=== PATIENT | female | born 1950 | race African-American/Black ===

== ENCOUNTER 2016-08-27 12:55 | Emergency (ER) | payer MEDICAID ==
[~2016-08-27] VITALS: Ht 167.6 cm; Wt 102.0 kg
[~2016-08-27 12:55] MED LIST: ALBU18HF2 IH; ASPI-1035 PO; ATOR20TA65 PO; BACL-141 PO; BP MED; CARV6.2548 PO; CYCL30DR EACHEYE; DEXT15DR5 EACHEYE; DIABETIC MED; DOCU-150 PO; FLUT16SP15 BOTHNSTRLS; GABA-290 PO; GLIM2TAB2 PO; LACRILUBE; LORA10TA7 PO; LOSA25TA12 PO; METF500T4 PO; METH4TAB17 PO; NITR0.4T3 SL; OMEP20CA10 PO; [UNRECOGNIZED DRUG - OTHER] PO; [UNRECOGNIZED DRUG - SUPPLY]
[2016-08-27] MEDS ORDERED: KETOROLAC 60MG/2ML VIAL IM ONE (16:45)
[2016-08-27 16:55] VITALS: BP 118/57
== END 2016-08-27 17:18 | disposition home or self-care (01) ==
LOC: ER 16:12
DX: S39.012A Strain of muscle, fascia and tendon of lower back, initial encounter (principal); S16.1XXA Strain of muscle, fascia and tendon at neck level, initial encounter; S80.02XA Contusion of left knee, initial encounter; S80.01XA Contusion of right knee, initial encounter; G89.29 Other chronic pain; J45.909 Unspecified asthma, uncomplicated; I10 Essential (primary) hypertension; Z79.82 Long term (current) use of aspirin; Z86.73 Personal history of transient ischemic attack (TIA), and cerebral infarction without residual deficits; Z79.899 Other long term (current) drug therapy; W19.XXXA Unspecified fall, initial encounter; Y93.89 Activity, other specified; Y99.8 Other external cause status; Y92.89 Other specified places as the place of occurrence of the external cause
CPT/HCPCS: 96372; 99283; J1885; Z7610

== ENCOUNTER 2016-12-03 15:05 | Inpatient (IN) | payer MEDICAID ==
[~2016-12-03] VITALS: Ht 167.6 cm; Wt 92.5 kg
[~2016-12-03 15:05] MED LIST changes: -ASPI-1035 PO; +ASPI-1159 PO
[2016-12-03] MEDS ORDERED: IPRATROPIUM BROMIDE (0.02%) 0.5MG/2.5ML NEB HHN STA (15:34)
[2016-12-03] MEDS ORDERED: METHYLPREDNISOLONE SOD SUCC 125 MG/2 ML VIAL IV STA (15:34)
[2016-12-03 16:08] LABS: BASOPHILS % 1.1 % (0.0-2.0); EOSINOPHILS % 10.5 % (0.0-5.0); HEMATOCRIT. 37.8 % (36.0-48.0); HEMOGLOBIN. 12.4 g/dL (12.0-16.0); LYMPHOCYTES % 36.9 % (20.0-50.0); MEAN CORPUSCULAR HEMOGLOBIN 30.2 pg (28.0-32.0); MEAN CORPUSCULAR VOLUME 91.8 fL (81.0-99.0); MEAN PLATELET VOLUME 9.3 fl (7.4-10.4); MONOCYTES % 7.1 % (2.0-8.0); NEUTROPHILS % 44.4 % (40.0-76.0); PLATELET 142 x1000/uL (130-400); RED BLOOD CELL COUNT 4.11 mill/uL (4.2-5.4); RED CELL DISTRIBUTION WIDTH 13.6 % (11.6-14.6)
[2016-12-03] MEDS: ALBUTEROL (0.083%) 2.5MG/3ML NEB HHN SCH ×2 (16:08→17:22)
[2016-12-03 16:12] LABS: PROTHROMBIN TIME 10.5 sec
[2016-12-03 16:22] LABS: CARBON DIOXIDE 31 mEq/L (21-32); CHLORIDE 107 mEq/L (98-107); TROPONIN I < 0.02 ng/mL (0.00-0.04)
[2016-12-03] MEDS ORDERED: ENOXAPARIN 40MG/0.4ML SYR SUBCUT SCH (19:00)
[2016-12-03] MEDS ORDERED: NA PHOS,M-B/NA PHOS,DI-BA ENEMA 118ML PR PRN (19:00)
[2016-12-03] MEDS ORDERED: MAGNESIUM/ALUMINUM HYDROXIDE/SIMETHICONE 30ML UDC PO PRN (19:00)
[2016-12-03] MEDS ORDERED: ACETAMINOPHEN 325MG TABLET PO PRN (19:00)
[2016-12-03] MEDS ORDERED: HYDROMORPHONE HCL/PF 2MG/ML CPJ IV PRN (19:00)
[2016-12-03] MEDS ORDERED: DOCUSATE SODIUM 100MG CAPSULE PO PRN (19:00)
[2016-12-03] MEDS ORDERED: DIPHENHYDRAMINE 50MG/ML VIAL IV PRN (19:00)
[2016-12-03] MEDS ORDERED: LORAZEPAM 2MG/ML CPJ IV PRN (19:00)
[2016-12-03] MEDS ORDERED: GUAIFENESIN 200MG/10ML SUGAR FREE UDC PO PRN (19:00)
[2016-12-03] MEDS ORDERED: ONDANSETRON HCL 4MG/2ML VIAL IV PRN (19:00)
[2016-12-03] MEDS ORDERED: CLONIDINE 0.1MG TABLET PO PRN (19:00)
[2016-12-03] MEDS ORDERED: IPRATROPIUM/ALBUTEROL 0.5-3(2.5)MG/3ML NEB INH PRN (19:00)
[2016-12-03] MEDS ORDERED: HYDROCODONE/ACETAMINOPHEN 5/325MG TABLET PO PRN (19:00)
[2016-12-03 23:00] VITALS: BP 141/90
[2016-12-04] MEDS ORDERED: METHYLPREDNISOLONE 4MG TABLET PO SCH
[2016-12-04] MEDS ORDERED: NITROGLYCERIN 0.4MG TABLET SL SL SCH
[2016-12-04] MEDS ORDERED: ALBUTEROL 6.7GM HFA INHALER INH SCH
[2016-12-04] MEDS ORDERED: MEDICATION NOT ON FORMULARY EA (Dextran 70/Hypromellose (Artificial Tears Eye Drops) 1 D EACHEYE PRN
[2016-12-04] MEDS ORDERED: LORATADINE 10MG TABLET PO PRN
[2016-12-04 00:12] LABS: CARBON DIOXIDE 30 mEq/L (21-32); CHLORIDE 104 mEq/L (98-107); TROPONIN I < 0.02 ng/mL (0.00-0.04)
[2016-12-04] MEDS: METHYLPREDNISOLONE SOD SUCC 125 MG/2 ML VIAL IV SCH ×4 (00:27→21:07)
[2016-12-04] MEDS: LEVOFLOXACIN 500MG PREMIX 100 ML IV SCH (00:28)
[2016-12-04] MEDS ORDERED: POLYVINYL ALCOHOL OPHTH DROPS 15ML EACHEYE PRN (01:00)
[2016-12-04] MEDS ORDERED: DEXTROSE 50% WATER 50ML SYRINGE IV PRN (02:00)
[2016-12-04 04:00] VITALS: BP 124/76
[2016-12-04] MEDS: ALBUTEROL (0.083%) 2.5MG/3ML NEB HHN SCH ×6 (05:06→20:32)
[2016-12-04] MEDS: BLOOD SUGAR DIAGNOSTIC STRIP TEST SCH ×4 (06:21→21:08)
[2016-12-04 07:00] LABS: BASOPHILS % 0.1 % (0.0-2.0); EOSINOPHILS % 0.1 % (0.0-5.0); HEMATOCRIT. 38.4 % (36.0-48.0); HEMOGLOBIN. 12.8 g/dL (12.0-16.0); LYMPHOCYTES % 9.3 % (20.0-50.0); MEAN CORPUSCULAR HEMOGLOBIN 30.5 pg (28.0-32.0); MEAN CORPUSCULAR VOLUME 91.4 fL (81.0-99.0); MEAN PLATELET VOLUME 9.3 fl (7.4-10.4); MONOCYTES % 1.8 % (2.0-8.0); NEUTROPHILS % 88.7 % (40.0-76.0); PLATELET 141 x1000/uL (130-400)
[2016-12-04 07:19] LABS: CHLORIDE 102 mEq/L (98-107)
[2016-12-04 07:35] LABS: CARBON DIOXIDE 29 mEq/L (21-32); HDL CHOLESTEROL 74 mg/dL (40-59); LDL CHOLESTEROL 99 mg/dL (5-100); T4 FREE 0.88 ng/dL (0.76-1.46); TROPONIN I < 0.02 ng/mL (0.00-0.04)
[2016-12-04] MEDS: INSULIN LISPRO 100 UNITS/ML SUBCUT SCH ×4 (07:50→21:09)
[2016-12-04 08:14] VITALS: BP 120/53
[2016-12-04] MEDS ORDERED: ASPIRIN 81MG EC TABLET PO SCH (09:00)
[2016-12-04] MEDS ORDERED: MEDICATION NOT ON FORMULARY EA (Gabapentin 1 TAB) PO SCH (09:00)
[2016-12-04] MEDS ORDERED: CARVEDILOL 6.25 MG TABLET PO SCH (09:00)
[2016-12-04] MEDS ORDERED: MEDICATION NOT ON FORMULARY EA (Cyclosporine (Restasis) 1 DROP) EACHEYE SCH (09:00)
[2016-12-04] MEDS: FLUTICASONE PROPIONATE 50MCG/SPRAY BOTTLE BOTHNSTRLS SCH (09:42)
[2016-12-04] MEDS: GABAPENTIN 300MG CAPSULE PO SCH ×3 (09:43→17:00)
[2016-12-04] MEDS: BACLOFEN 10MG TABLET PO SCH ×3 (09:43→17:00)
[2016-12-04] MEDS: FUROSEMIDE 40MG/4ML VIAL IV SCH (09:43)
[2016-12-04] MEDS: METFORMIN HCL 500MG TABLET PO SCH ×2 (09:44→17:53)
[2016-12-04] MEDS: DOCUSATE SODIUM 100MG CAPSULE PO SCH ×2 (09:44→17:53)
[2016-12-04] MEDS: GLIMEPIRIDE 2MG TABLET PO SCH ×2 (09:44→17:53)
[2016-12-04] MEDS: LOSARTAN POTASSIUM 25 MG TABLET PO SCH (09:44)
[2016-12-04] MEDS: OMEPRAZOLE 20MG CAPSULE EXTENDED RELEASE PO SCH (09:45)
[2016-12-04] MEDS: ENOXAPARIN 30MG/0.3ML SYR SUBCUT SCH ×2 (09:46→21:08)
[2016-12-04] MEDS: ASPIRIN 81MG EC TABLET PO SCH (09:49)
[2016-12-04 11:57] VITALS: BP 132/66
[2016-12-04 16:14] VITALS: BP 106/64
[2016-12-04 16:19] LABS: CREATINE KINASE 53 IU/L (26-192); CREATINE KINASE MB FRACTION 0.9 ng/mL (0.5-3.6); TROPONIN I < 0.02 ng/mL (0.00-0.04)
[2016-12-04] MEDS: MONTELUKAST SODIUM 10MG TABLET PO SCH (17:53)
[2016-12-04] MEDS: TRIAMTERENE/HYDROCHLOROTHIAZIDE 37.5/25MG CAPSULE PO SCH (17:53)
[2016-12-04] MEDS ORDERED: REGADENOSON 0.4 MG/5 ML IV NR (18:30)
[2016-12-04 20:51] VITALS: BP 130/75
[2016-12-04] MEDS: CARVEDILOL 6.25 MG TABLET PO SCH (21:07)
[2016-12-04] MEDS: ATORVASTATIN CALCIUM 20MG TABLET PO SCH (21:08)
[2016-12-04 23:26] LABS: CREATINE KINASE 41 IU/L (26-192); CREATINE KINASE MB FRACTION 0.7 ng/mL (0.5-3.6); TROPONIN I < 0.02 ng/mL (0.00-0.04)
[2016-12-04 23:59] VITALS: BP 130/79
[2016-12-05] MEDS: ALBUTEROL (0.083%) 2.5MG/3ML NEB HHN SCH ×7 (00:02→20:01)
[2016-12-05] MEDS: LEVOFLOXACIN 500MG PREMIX 100 ML IV SCH (00:31)
[2016-12-05] MEDS: METHYLPREDNISOLONE SOD SUCC 125 MG/2 ML VIAL IV SCH ×4 (02:33→21:31)
[2016-12-05 04:00] VITALS: BP 124/78
[2016-12-05 06:17] LABS: CREATINE KINASE 32 IU/L (26-192); CREATINE KINASE MB FRACTION < 0.5 ng/mL (0.5-3.6); TROPONIN I < 0.02 ng/mL (0.00-0.04)
[2016-12-05] MEDS: CARVEDILOL 6.25 MG TABLET PO SCH ×2 (06:31→18:44)
[2016-12-05] MEDS: BLOOD SUGAR DIAGNOSTIC STRIP TEST SCH ×4 (06:42→21:14)
[2016-12-05] MEDS: INSULIN LISPRO 100 UNITS/ML SUBCUT SCH ×4 (07:03→21:29)
[2016-12-05 08:41] VITALS: BP 133/73
[2016-12-05] MEDS: LOSARTAN POTASSIUM 25 MG TABLET PO SCH ×2 (09:00→11:49)
[2016-12-05] MEDS: FLUTICASONE PROPIONATE 50MCG/SPRAY BOTTLE BOTHNSTRLS SCH ×2 (09:00→11:52)
[2016-12-05] MEDS: FUROSEMIDE 40MG/4ML VIAL IV SCH ×2 (09:00→11:48)
[2016-12-05] MEDS: GABAPENTIN 300MG CAPSULE PO SCH ×3 (09:00→18:43)
[2016-12-05] MEDS: METFORMIN HCL 500MG TABLET PO SCH ×2 (09:00→11:49)
[2016-12-05] MEDS: OMEPRAZOLE 20MG CAPSULE EXTENDED RELEASE PO SCH ×2 (09:00→11:49)
[2016-12-05] MEDS: ASPIRIN 81MG EC TABLET PO SCH ×2 (09:00→11:49)
[2016-12-05] MEDS: DOCUSATE SODIUM 100MG CAPSULE PO SCH ×2 (09:00→11:54)
[2016-12-05] MEDS: BACLOFEN 10MG TABLET PO SCH ×3 (09:00→18:44)
[2016-12-05] MEDS: TRIAMTERENE/HYDROCHLOROTHIAZIDE 37.5/25MG CAPSULE PO SCH ×2 (09:00→11:50)
[2016-12-05] MEDS: ENOXAPARIN 30MG/0.3ML SYR SUBCUT SCH ×2 (09:00→11:52)
[2016-12-05] MEDS ORDERED: REGADENOSON 0.4 MG/5 ML IV ONE (09:08)
[2016-12-05 11:48] VITALS: BP 125/68
[2016-12-05] MEDS: GLIMEPIRIDE 2MG TABLET PO SCH (11:51)
[2016-12-05] MEDS ORDERED: IOHEXOL-350 100 ML BOTTLE ONE (13:11)
[2016-12-05] MEDS ORDERED: SODIUM CHLORIDE 0.9% 10ML VIAL ONE (13:11)
[2016-12-05 15:47] VITALS: BP 140/80
[2016-12-05] MEDS: MONTELUKAST SODIUM 10MG TABLET PO SCH (18:44)
[2016-12-05] MEDS: ATORVASTATIN CALCIUM 20MG TABLET PO SCH (21:31)
[2016-12-05 21:57] VITALS: BP 112/61
[2016-12-06 00:08] VITALS: BP 144/74
[2016-12-06] MEDS: ALBUTEROL (0.083%) 2.5MG/3ML NEB HHN SCH ×6 (00:13→20:48)
[2016-12-06] MEDS: LEVOFLOXACIN 500MG PREMIX 100 ML IV SCH (03:09)
[2016-12-06] MEDS: METHYLPREDNISOLONE SOD SUCC 125 MG/2 ML VIAL IV SCH ×4 (03:17→22:08)
[2016-12-06 04:00] VITALS: BP 121/71
[2016-12-06] MEDS: BLOOD SUGAR DIAGNOSTIC STRIP TEST SCH ×4 (06:49→21:51)
[2016-12-06] MEDS: CARVEDILOL 6.25 MG TABLET PO SCH ×2 (06:56→17:21)
[2016-12-06 08:00] VITALS: BP 120/60
[2016-12-06] MEDS: OMEPRAZOLE 20MG CAPSULE EXTENDED RELEASE PO SCH (09:09)
[2016-12-06] MEDS: ASPIRIN 81MG EC TABLET PO SCH (09:09)
[2016-12-06] MEDS: DOCUSATE SODIUM 100MG CAPSULE PO SCH ×2 (09:10→17:20)
[2016-12-06] MEDS: FUROSEMIDE 40MG/4ML VIAL IV SCH (09:10)
[2016-12-06] MEDS: METFORMIN HCL 500MG TABLET PO SCH ×2 (09:10→17:20)
[2016-12-06] MEDS: LOSARTAN POTASSIUM 25 MG TABLET PO SCH (09:10)
[2016-12-06] MEDS: BACLOFEN 10MG TABLET PO SCH ×3 (09:10→17:20)
[2016-12-06] MEDS: GABAPENTIN 300MG CAPSULE PO SCH ×3 (09:10→17:18)
[2016-12-06] MEDS: GLIMEPIRIDE 2MG TABLET PO SCH (09:10)
[2016-12-06] MEDS: FLUTICASONE PROPIONATE 50MCG/SPRAY BOTTLE BOTHNSTRLS SCH (09:11)
[2016-12-06] MEDS: INSULIN LISPRO 100 UNITS/ML SUBCUT SCH ×4 (09:21→21:00)
[2016-12-06] MEDS: ENOXAPARIN 30MG/0.3ML SYR SUBCUT SCH ×2 (09:22→22:12)
[2016-12-06] MEDS: TRIAMTERENE/HYDROCHLOROTHIAZIDE 37.5/25MG CAPSULE PO SCH (09:27)
[2016-12-06 12:00] VITALS: BP 120/63
[2016-12-06 16:00] VITALS: BP 117/61
[2016-12-06] MEDS: MONTELUKAST SODIUM 10MG TABLET PO SCH (17:19)
[2016-12-06 20:00] VITALS: BP 95/52
[2016-12-06] MEDS: ATORVASTATIN CALCIUM 20MG TABLET PO SCH (22:09)
[2016-12-07] VITALS: BP 100/67
[2016-12-07] MEDS: ALBUTEROL (0.083%) 2.5MG/3ML NEB HHN SCH ×4 (00:19→12:36)
[2016-12-07] MEDS: METHYLPREDNISOLONE SOD SUCC 125 MG/2 ML VIAL IV SCH ×2 (02:00→08:16)
[2016-12-07] MEDS ORDERED: LEVOFLOXACIN 500MG PREMIX 100 ML IV SCH (02:00)
[2016-12-07] MEDS: LEVOFLOXACIN 500MG PREMIX 100 ML IV SCH (03:35)
[2016-12-07] MEDS: BLOOD SUGAR DIAGNOSTIC STRIP TEST SCH ×2 (07:07→12:10)
[2016-12-07] MEDS: CARVEDILOL 6.25 MG TABLET PO SCH (07:15)
[2016-12-07] MEDS: INSULIN LISPRO 100 UNITS/ML SUBCUT SCH ×2 (07:50→12:12)
[2016-12-07 08:00] VITALS: BP 107/57
[2016-12-07] MEDS: GABAPENTIN 300MG CAPSULE PO SCH (08:14)
[2016-12-07] MEDS: DOCUSATE SODIUM 100MG CAPSULE PO SCH (08:15)
[2016-12-07] MEDS: METFORMIN HCL 500MG TABLET PO SCH (08:15)
[2016-12-07] MEDS: BACLOFEN 10MG TABLET PO SCH (08:15)
[2016-12-07] MEDS: ENOXAPARIN 30MG/0.3ML SYR SUBCUT SCH (08:16)
[2016-12-07] MEDS ORDERED: FAMOTIDINE 20MG TABLET PO SCH (09:00)
[2016-12-07 09:56] VITALS: BP 107/57
[2016-12-07 12:03] VITALS: BP 123/65
== END 2016-12-07 13:30 | disposition home or self-care (01) | DRG 140 ==
LOC: ER 15:39 → 6WST 17:24 → ENRESERV 21:38
PROVIDERS: ADMIT Internal Medicine; ATTEND Internal Medicine
DX: J44.1 Chronic obstructive pulmonary disease with (acute) exacerbation (principal); J96.21 Acute and chronic respiratory failure with hypoxia; I11.0 Hypertensive heart disease with heart failure; I50.9 Heart failure, unspecified; R04.2 Hemoptysis; D64.9 Anemia, unspecified; E11.9 Type 2 diabetes mellitus without complications; E87.6 Hypokalemia; J96.22 Acute and chronic respiratory failure with hypercapnia; I25.10 Atherosclerotic heart disease of native coronary artery without angina pectoris; Z79.82 Long term (current) use of aspirin; Z79.84 Long term (current) use of oral hypoglycemic drugs; Z79.899 Other long term (current) drug therapy; Z86.73 Personal history of transient ischemic attack (TIA), and cerebral infarction without residual deficits; Z95.5 Presence of coronary angioplasty implant and graft; I25.2 Old myocardial infarction
CPT/HCPCS: 36415; 71010; 71275; 78452; 80048; 80053; 80061; 82550; 82553; 82962; 83036; 83880; 84439; 84443; 84484; 85025; 85379; 85610; 93005; 93017; 93306; 93970; 94640; 94664; 96374; 99285; A4216; A9500; J1170; J1650; J1815; J1940; J1956; J2785; J2930; J7050; J7611; J7620; Q9967

== ENCOUNTER 2017-09-09 10:30 | Emergency (ER) | payer MEDICAID ==
[~2017-09-09] VITALS: Ht 160 cm; Wt 93.0 kg
[~2017-09-09 10:30] MED LIST changes: -NITR0.4T3 SL; +NITR0.4T49 SL
[2017-09-09 16:12] VITALS: BP 118/76
== END 2017-09-09 18:07 | disposition home or self-care (01) ==
LOC: ER 11:39
DX: M54.5 Low back pain (principal); G89.29 Other chronic pain; E11.9 Type 2 diabetes mellitus without complications; I10 Essential (primary) hypertension; J45.909 Unspecified asthma, uncomplicated; Z79.82 Long term (current) use of aspirin
CPT/HCPCS: 99283

== ENCOUNTER 2022-03-23 13:29 | Emergency (ER) | payer MEDICARE, MEDICAID ==
[~2022-03-23] VITALS: Ht 167.6 cm; Wt 105.0 kg
[~2022-03-23 13:29] MED LIST changes: -ASPI-1159 PO; +ASPI-1497 PO; -GLIM2TAB2 PO; +GLIM2TAB30 PO; -LOSA25TA12 PO; +LOSA25TA26 PO; +METF-414 PO; -METF500T4 PO; -OMEP20CA10 PO; +OMEP20CA14 PO
[2022-03-23 14:13] VITALS: BP 166/87
[2022-03-23] MEDS ORDERED: IBUPROFEN 600MG TABLET PO STA (17:05)
[2022-03-23] MEDS ORDERED: ACETAMINOPHEN WITH CODEINE 300/30MG TABLET PO STA (18:24)
[2022-03-23] MEDS ORDERED: T3 PO (18:30)
[2022-03-23] MEDS ORDERED: NAPR-681 PO (18:30)
[2022-03-23 19:38] LABS: CLARITY URINE CLEAR (CLEAR); COLOR URINE YELLOW (YELLOW); KETONES URINE TRACE (NEGATIVE); LEUKOCYTE ESTERASE URINE NEGATIVE (NEGATIVE); NITRITE URINE NEGATIVE (NEGATIVE); OCCULT BLOOD URINE NEGATIVE (NEGATIVE); PROTEIN URINE NEGATIVE (NEGATIVE); UROBILINOGEN URINE 0.2 E.U./dL (0.2-1.0)
== END 2022-03-23 19:42 | disposition home or self-care (01) ==
LOC: ER 13:29
DX: M47.9 Spondylosis, unspecified (principal); J45.909 Unspecified asthma, uncomplicated; Z79.899 Other long term (current) drug therapy
CPT/HCPCS: 72070; 72100; 81003; 99284

== ENCOUNTER 2022-10-10 10:55 | Emergency (ER) | payer MEDICARE, MEDICAID ==
[~2022-10-10] VITALS: Ht 167.6 cm; Wt 105.0 kg
[~2022-10-10 10:55] MED LIST changes: +NAPR-681 PO; +T3 PO
[2022-10-10] MEDS ORDERED: AMOX1TAB16 MT (12:57)
[2022-10-10 13:54] VITALS: BP 176/77
== END 2022-10-10 13:56 | disposition home or self-care (01) ==
LOC: ER 10:55
DX: M25.561 Pain in right knee (principal); M79.661 Pain in right lower leg; M25.471 Effusion, right ankle; J45.909 Unspecified asthma, uncomplicated; Z79.899 Other long term (current) drug therapy; Z98.890 Other specified postprocedural states
CPT/HCPCS: 93971; 99284; Z7610

== ENCOUNTER 2023-05-16 13:07 | Emergency (ER) | payer MEDICARE, OTHER ==
[~2023-05-16] VITALS: Ht 167.6 cm; Wt 109.0 kg
[~2023-05-16 13:07] MED LIST changes: +AMOX1TAB16 MT
[2023-05-16 13:37] VITALS: BP 151/70; PULSE 90; RESP 16; TEMP 98.2; O2SAT 95
[2023-05-16] MEDS ORDERED: IBUP-2029 MT (14:52)
== END 2023-05-16 15:22 | disposition home or self-care (01) ==
LOC: ER 13:07
DX: K02.9 Dental caries, unspecified (principal); H92.01 Otalgia, right ear; J45.909 Unspecified asthma, uncomplicated; Z79.899 Other long term (current) drug therapy
CPT/HCPCS: 99282

== ENCOUNTER 2024-04-21 13:08 | Emergency (ER) | payer MEDICARE, OTHER ==
[~2024-04-21] VITALS: Ht 167.6 cm; Wt 99.7 kg
[~2024-04-21 13:08] MED LIST changes: -DOCU-150 PO; +DOCU-422 PO; +IBUP-2029 MT
[2024-04-21 13:14] VITALS: O2SAT 99
[2024-04-21 13:23] VITALS: TEMP 98.4; O2SAT 100
[2024-04-21] MEDS: IBUPROFEN 600MG TABLET PO ONE (14:57)
[2024-04-21] MEDS ORDERED: METH-653 MT (15:30)
[2024-04-21] MEDS: METOCLOPRAMIDE HCL 10MG TABLET PO ONE (16:00)
[2024-04-21] MEDS: DIPHENHYDRAMINE 25MG CAPSULE PO ONE (16:00)
[2024-04-21 16:01] VITALS: BP 148/70; PULSE 78; RESP 16
[2024-04-21] MEDS: KETOROLAC 30MG/ML VIAL IM ONE (16:01)
== END 2024-04-21 16:11 | disposition home or self-care (01) ==
LOC: ER 13:08
DX: S13.4XXA Sprain of ligaments of cervical spine, initial encounter (principal); G43.909 Migraine, unspecified, not intractable, without status migrainosus; J45.909 Unspecified asthma, uncomplicated; E11.9 Type 2 diabetes mellitus without complications; I10 Essential (primary) hypertension; Z79.899 Other long term (current) drug therapy; X58.XXXA Exposure to other specified factors, initial encounter; Y93.89 Activity, other specified; Y92.89 Other specified places as the place of occurrence of the external cause; Y99.8 Other external cause status
CPT/HCPCS: 99285; 70450; 82962; 96372; Q0163; J8597; J1885